=== PATIENT | female | born 1985 | race American Indian/Alaskan Native ===

== ENCOUNTER 2022-08-25 15:13 | Inpatient (IN) ==
[2022-08-25 16:31] LABS: ABS Eosinophils 0.2 10^3/ul (0-0.6); ABS Lymphocytes 1.2 10^3/ul (1.0-4.8); ABS Monocytes 0.6 10^3/ul (0-0.8); ABS Neutrophils 4.6 10^3/ul (1.5-7.7); Eosinophil % 2.7 %; Hematocrit 42 % (35-47); Lymphocyte % 18.1 %; Mean Corpuscular HGB Conc 33 g/dL (31-36); Mean Corpuscular Hemoglobin 30 pg (27-31); Mean Corpuscular Volume 90 fL (80-97); Mean Platelet Volume 9.8 fL (7.4-10.4); Platelet Count 242 10^3/uL (150-450); Red Blood Count 4.64 10^6 /uL (3.70-4.87); Red Cell Distribution Width 13 % (10-15); White Blood Count 6.6 10^3/uL (3.5-10.8)
[2022-08-25 16:55] LABS: Urine Benzodiazepine Screen None Detected (None Detect); Urine Cannabinoids Screen None Detected (None Detect); Urine Opiates Screen None Detected (None Detect)
[2022-08-25 16:59] LABS: ALT 13 U/L (7-52); AST 15 U/L (13-39); Acetaminophen < 15 mcg/mL; Albumin 4.3 g/dL (3.2-5.2); Albumin/Globulin Ratio 1.5 (1-3); Alcohol, S < 13 mg/dL (<13); Alkaline Phosphatase 47 U/L (35-149); Anion Gap 5 mmol/L (2-11); Blood Urea Nitrogen 9 mg/dL (6-24); CO2 Carbon Dioxide 27 mmol/L (22-32); Calcium 9.4 mg/dL (8.6-10.3); Chloride 105 mmol/L (101-111); Globulin 2.9 g/dL (2-4); Glucose 100 mg/dL (70-100); Salicylate < 2.50 mg/dL (<30); Sodium 137 mmol/L (135-145); Total Protein 7.2 g/dL (6.4-8.9); eGFR CKD-EPI 112.9 (>60)
[2022-08-25 17:13] LABS: TSH Ultra Thyroid Stim Horm 3.56 mcIU/mL (0.34-5.60)
[2022-08-25] MEDS ORDERED: Al Hydrox/Mg Hydrox/Simet LIQ 30 ML UDC PO PRN (23:17)
[2022-08-26] MEDS: Vitamin THERAPEUTIC TAB PO SCH (09:08)
[2022-08-27 08:33] LABS: HDL Cholesterol 65.8 mg/dL
[2022-08-27] MEDS: Vitamin THERAPEUTIC TAB PO SCH (08:50)
[2022-08-28] MEDS: Vitamin THERAPEUTIC TAB PO SCH (09:15)
[2022-08-29] MEDS: Vitamin THERAPEUTIC TAB PO SCH (08:49)
[2022-08-29] MEDS ORDERED: guaiFENesin 100 mg/5 ml LIQ unit dose cup PO PRN (10:07)
[2022-08-29 13:46] LABS: Chlamydia trachomatis NAA Negative (Negative); Neisseria gonorrhoeae (GC) NAA Negative (Negative)
[2022-08-29 14:12] LABS: HIV 4th Generation Nonreactive (Nonreactive)
[2022-08-30] MEDS: Vitamin THERAPEUTIC TAB PO SCH (08:27)
[2022-08-30 09:49] VITALS: BP 119/69
== END 2022-08-30 12:46 | disposition home or self-care (01) | DRG 751 ==
LOC: ED 15:13 → BSU 22:30
PROVIDERS: ADMIT Psychiatry & Neurology Psychiatry; ATTEND Psychiatry & Neurology Psychiatry